=== PATIENT | female | born 1995 | race Caucasian/White ===

== ENCOUNTER 2017-12-15 10:11 | Emergency (ER) | payer OTHER ==
[~2017-12-15] VITALS: Ht 165.1 cm; Wt 52.2 kg
[2017-12-15 10:19] VITALS: Ht 165.1 cm; Wt 52.2 kg
[2017-12-15 11:09] VITALS: BP 120/87
== END 2017-12-15 11:10 | disposition home or self-care (01) ==
LOC: ED 10:11
DX: S09.90XA Unspecified injury of head, initial encounter (principal); R11.0 Nausea; W18.2XXA Fall in (into) shower or empty bathtub, initial encounter; Y93.89 Activity, other specified; Y92.89 Other specified places as the place of occurrence of the external cause; Y99.8 Other external cause status
CPT/HCPCS: Q0162

== ENCOUNTER 2018-04-15 19:46 | Inpatient (IN) | payer BC ==
[~2018-04-15] VITALS: Ht 165.1 cm; Wt 53.1 kg
[2018-04-15 20:35] LABS: BASOPHIL % 0.4 % (0-2); PLATELET COUNT 277 x10^3mcL (130-400); RED CELL DISTRIBUTION WIDTH 12.4 % (11.5-14.5)
[2018-04-15 20:40] LABS: CALCIUM 9.1 mg/dL (8.5-10.1); CARBON DIOXIDE 26.9 mmol/L (21-32); CHLORIDE SERUM 103 mmol/L (98-107); CREATININE SERUM 0.9 mg/dL (0.6-1.0); GFR1 > 60 mL/min; GLUCOSE SERUM 93 mg/dL (74-106); POTASSIUM SERUM 3.7 mmol/L (3.5-5.1); SODIUM SERUM 140 mmol/L (136-145)
[2018-04-15 20:44] LABS: ALBUMIN 3.9 g/dL (3.4-5.0); ALKALINE PHOSPHATASE 148 U/L (46-116); ALT/SGPT 21 U/L (14-59); AST/SGOT 12 U/L (15-37); BILIRUBIN TOTAL 0.6 mg/dL (0.20-1.00); LIPASE 121 IU/L (73-393); TOTAL PROTEIN, SERUM 8.1 g/dL (6.4-8.2)
[2018-04-15 20:58] LABS: FREE T4 1.1 ng/dL (0.76-1.46)
[2018-04-15 21:26] LABS: microscopic required? YES; urine erythrocyte 2+ (NEGATIVE)
[2018-04-16 00:26] VITALS: BP 130/76
[2018-04-16 01:48] LABS: AMPHETAMINE QUAL UR NONE DETECTED (See below)
[2018-04-16 01:49] LABS: PHOSPHOROUS 3.6 mg/dL (2.5-4.9)
[2018-04-16 01:55] LABS: FREE T4 1.1 ng/dL (0.76-1.46); T3 TOTAL 1.06 ng/mL
[2018-04-16 02:04] LABS: FREE THYROXINE INDEX 3.5 ug/dL (1.4-4.5); T4(THYROXINE) 13.4 ug/dL (4.7-13.3)
[2018-04-16 05:40] VITALS: BP 104/52
[2018-04-16 06:38] LABS: BASOPHIL % 0.4 % (0-2); PLATELET COUNT 220 x10^3mcL (130-400); RED CELL DISTRIBUTION WIDTH 12.3 % (11.5-14.5)
[2018-04-16 06:39] LABS: CALCIUM 8.3 mg/dL (8.5-10.1); CARBON DIOXIDE 26.8 mmol/L (21-32); CHLORIDE SERUM 108 mmol/L (98-107); CHOLESTEROL 140 mg/dL (<200); CHOLESTEROL/HDL RATIO 3.6; CREATININE SERUM 0.7 mg/dL (0.6-1.0); GFR1 > 60 mL/min; GLUCOSE SERUM 88 mg/dL (74-106); HDL CHOLESTEROL 39 mg/dL (40-60); POTASSIUM SERUM 3.7 mmol/L (3.5-5.1); SODIUM SERUM 144 mmol/L (136-145); TRIGLYCERIDES 81 mg/dL (<150)
[2018-04-16 09:02] VITALS: BP 112/60
[2018-04-16 13:41] VITALS: BP 113/56
[2018-04-16 17:06] VITALS: BP 109/56
[2018-04-16 20:57] VITALS: BP 114/58
[2018-04-17 05:49] VITALS: BP 106/49
[2018-04-17 07:03] LABS: BASOPHIL % 0.3 % (0-2); CARBON DIOXIDE 26.8 mmol/L (21-32); CHLORIDE SERUM 106 mmol/L (98-107); CREATININE SERUM 0.7 mg/dL (0.6-1.0); GFR1 > 60 mL/min; GLUCOSE SERUM 85 mg/dL (74-106); PHOSPHOROUS 3.9 mg/dL (2.5-4.9); PLATELET COUNT 257 x10^3mcL (130-400); POTASSIUM SERUM 4.1 mmol/L (3.5-5.1); RED CELL DISTRIBUTION WIDTH 12.5 % (11.5-14.5); SODIUM SERUM 141 mmol/L (136-145)
[2018-04-17 08:41] VITALS: BP 116/63
[2018-04-17 17:57] VITALS: BP 104/52
[2018-04-17 20:49] VITALS: BP 110/52
[2018-04-18 05:45] VITALS: BP 105/48
[2018-04-18 06:12] LABS: BASOPHIL % 0.5 % (0-2); PLATELET COUNT 284 x10^3mcL (130-400); RED CELL DISTRIBUTION WIDTH 12.5 % (11.5-14.5)
[2018-04-18 06:16] LABS: CALCIUM 9.2 mg/dL (8.5-10.1); CARBON DIOXIDE 26.6 mmol/L (21-32); CHLORIDE SERUM 102 mmol/L (98-107); CREATININE SERUM 0.9 mg/dL (0.6-1.0); GFR1 > 60 mL/min; GLUCOSE SERUM 90 mg/dL (74-106); MAGNESIUM 1.9 mg/dL (1.8-2.4); PHOSPHOROUS 4.6 mg/dL (2.5-4.9); POTASSIUM SERUM 4.2 mmol/L (3.5-5.1); SODIUM SERUM 139 mmol/L (136-145)
[2018-04-18 08:12] VITALS: BP 115/56
[2018-04-18] MEDS ORDERED: CODEINE-GUAIFE120 ML PO (09:44)
[2018-04-18] MEDS ORDERED: LEVAQUIN750 MG PO (09:46)
[2018-04-18 10:07] VITALS: BP 115/56
[2018-04-18] MEDS ORDERED: PROBIOTIC1 EAC1 PO (10:14)
== END 2018-04-18 12:10 | disposition home or self-care (01) | DRG 871 ==
LOC: ED 19:46 → DU 23:13 → MU 23:13 → DU 04-16 00:21 → MU 04-16 08:00
PROVIDERS: Emergency Medicine; Family Medicine
DX: A41.9 Sepsis, unspecified organism (principal); J18.1 Lobar pneumonia, unspecified organism; N17.0 Acute kidney failure with tubular necrosis; J98.11 Atelectasis; E87.8 Other disorders of electrolyte and fluid balance, not elsewhere classified; Z53.29 Procedure and treatment not carried out because of patient's decision for other reasons; E02 Subclinical iodine-deficiency hypothyroidism; J98.09 Other diseases of bronchus, not elsewhere classified; R59.9 Enlarged lymph nodes, unspecified; R31.9 Hematuria, unspecified
CPT/HCPCS: 83880; 84439; J1885; J1956; J2270; J7030; J7040; J7620; Q9967